=== PATIENT | female | born 1975 ===

== ENCOUNTER 2018-01-25 18:38 | Emergency (ER) | payer BC, OTHER, SELFPAY ==
[2018-01-25 18:58] VITALS: BP 134/96; PULSE 78; RESP 16; TEMP 36.5; O2SAT 100
--- NOTE | 2018-01-25 19:23 | DI.REPORT_ITS ---
SYMPTOM/DIAGNOSIS: TRAUMA RIGHT SCAPULA: There are lucencies visible in the mid body of the scapula consistent with nondisplaced fractures.The distal clavicle projects slightly superior to the acromion which could indicate a mild A-C separation. There is no widening of the A-C joint or widening of the coracoclavicular distance. IMPRESSION: Question of mild acromioclavicular separation vs anatomic variant. Nondisplaced scapular fracture. RIGHT SHOULDER: The clavicle projects superior to the acromion which would indicate an A-C separation or could be related to previous injury or possible anatomic variant. There is no widening of the A-C joint or widening of the coracoclavicular distance. There are lucencies in the scapula consistent with a nondisplaced fracture. IMPRESSION: Nondisplaced scapular fracture.
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
[2018-01-25] MEDS: Acetaminophen 500 MG TAB 1000 MG PO (19:39)
[2018-01-25] MEDS: Cyclobenzaprine 10 MG TAB PO (19:39)
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
--- NOTE | 2018-01-25 20:45 | DI.VRAD_ITS ---
EXAM: XR Right Shoulder Complete, 2 or More Views EXAM DATE/TIME: 01/25/2018 8:11 PM CLINICAL HISTORY: 42 years old, female; Pain; Shoulder; Right TECHNIQUE: XR Right shoulder complete 2 or more views. COMPARISON: No relevant prior studies available. FINDINGS: Bones/joints: Normal. Soft tissues: Normal. Other findings: Possible right a.c. separation. IMPRESSION: Possible right a.c. separation. Dictated and Authenticated by: Los Hobbs MD. Ordering:CORDELL LYNN MD
[2018-01-25] MEDS: Cyclobenzaprine 10 MG TAB 30 MG PO (21:21)
== END 2018-01-25 21:31 | disposition home or self-care (01) ==
PROVIDERS: Emergency Provider Emergency Medicine
DX: S40.011A Contusion of right shoulder, initial encounter (principal); V86.69XA Passenger of other special all-terrain or other off-road motor vehicle injured in nontraffic accident, initial encounter; M75.101 Unspecified rotator cuff tear or rupture of right shoulder, not specified as traumatic
CPT/HCPCS: 99284; 73010; 73030; L3650